=== PATIENT | female | born 1985 | race Two or more races ===

== ENCOUNTER 2023-04-02 00:56 | Emergency (ER) | payer OTHER ==
[~2023-04-02] VITALS: Ht 154.9 cm; Wt 49.9 kg
[2023-04-02 01:35] VITALS: BP 122/70
[2023-04-02] MEDS ORDERED: CEPH500T PO (01:39)
[2023-04-02] MEDS ORDERED: SULF1TAB48 PO (01:39)
--- NOTE | 2023-04-02 01:40 | NUR ---
CC INFECTED WOUND ON RIGHT CALF AREA X4 DAYS. APPLIED [employer] A[employer]LY[employer]. PATIENT IS AOX4. PLACED COMFORTABLY IN BED. CHANGED TO HOSPITAL GOWN.
--- NOTE | 2023-04-02 01:45 | NUR ---
DOCTOR SEEN AT BEDSIDE, AWAITING ORDERS
[2023-04-02] MEDS ORDERED: CEPHALEXIN MONOHYDRATE 500 MG CAPSULE PO ONE ×2 (01:49→02:00)
[2023-04-02] MEDS ORDERED: SULFAMETH/TRIMETH 800/160 MG 1 UDTAB TABLET ONE (01:50)
--- NOTE | 2023-04-02 01:57 | NUR ---
Patient discharged to home in stable condition. Written and verbal after care instructions given. Patient verbalizes understanding of instruction.
[2023-04-02] MEDS ORDERED: SULFAMETH/TRIMETH 800/160 MG 1 UDTAB TABLET PO ONE (02:00)
== END 2023-04-02 01:58 | disposition home or self-care (01) ==
LOC: ER 00:58
DX: L03.115 Cellulitis of right lower limb (principal); Z79.899 Other long term (current) drug therapy